=== PATIENT | female | born 1950 | race Caucasian/White ===

== ENCOUNTER 2022-01-29 06:33 | Day surgery (SDC) | payer MEDICARE, OTHER, SELFPAY ==
--- NOTE | 2022-01-29 04:48 | W.ANESPRE ---
General Info Date of Service Date Performed: 01/29/22 Height: 5 ft 9 in Weight: 63.503 kg Body Mass Index (BMI): 20.7 Surgical Procedure: Operation Date: 01/29/22 07:40 Proposed Procedure Side Surgeon p Cataract Extraction with IOL Implant Left Art Novak MD Meds Allergies and Home Medications Allergies Allergy/AdvReac Type Severity Reaction Status Date / Time cat dander Allergy Mild Other (See Unverified 01/29/22 06:54 Comment) dog dander Allergy Mild Other (See Unverified 01/29/22 06:54 Comment) dust Allergy Mild Other (See Uncoded 01/29/22 06:54 Comment) Home Medication Medication Instructions Recorded calcium carbonate 600 mg-vitamin 1 tab PO DAILY 01/26/22 D3 5 mcg (200 unit) tablet cholecalciferol (vitamin D3) 25 1,000 unit PO DAILY 01/26/22 mcg (1,000 unit) chewable tablet (Vitamin D3) multivitamin 1 tab PO DAILY 01/26/22 Current Visit Medications: Current Medications Generic Name Dose Route Start Last Admin Trade Name Freq PRN Reason Stop Dose Admin Acetaminophen 1,000 mg 01/29/22 06:00 Acetaminophen 500 Mg Tab PO Q4H PRN PRN Miscellaneous Medication 0 ml 01/29/22 06:00 Prednisolone 1%, Moxifloxacin 0.5%, Nepafenac 0.1% 5ml Btl OS DIRECTED [facility] Miscellaneous Medication 0 ml 01/29/22 06:00 Tropicam./Phenyleph. 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) Hearing loss History of broken leg Hypercholesteremia Osteoporosis Vitamin D deficiency Surgical History Surgical History (Updated 01/26/22 @ 11:45 by Anoop Corea) Hx of breast biopsy Hx of section Hx of colonoscopy Hx of tubal ligation Tobacco Smoking/Tobacco Use Status: Former Tobacco Use Alcohol Alcohol Intake: current Alcohol intake frequency: a few times a month Substance Use Substance use: Never Substance use type: does not use Vital Signs and Lab Results Vital Signs Most Recent Vital Signs in EMR: Temp Pulse Resp BP Pulse Ox 36.8 C 75 16 144/86 H 100 01/29/22 06:55 01/29/22 06:55 01/29/22 06:55 01/29/22 06:55 01/29/22 06:55 Lab Results Blood Type / Crossmatch: No Data to Display Complete Blood Count: No Data to Display Complete Metabolic Panel: No Data to Display Liver Function Panel: No Data to Display Coagulation Panel: No Data to Display Cardiac Panel: No Data to Display Arterial Blood Gas: No Data to Display Venous Blood Gas: No Data to Display Pancreas Panel: No Data to Display Thyroid Panel: No Data to Display Infectious Disease: No Data to Display Blood Cultures: No Data to Display Toxicology Panel: No Data to Display Anesthesia Assessment and Plan Anesthesia History Personal History: No History of Anesthesia Complications Family History: No Family History of Anesthesia Complications Exercise Tolerance Exercise Tolerance: Metabolic Equivalents>4 Cardiac & Pulmonary Exam Cardiac Exam: Normal S1/S2 Heart Sounds Pulmonary Exam: Clear Bilateral Breath Sounds Implantable Cardiac Device Does patient have a Pacemaker or an ICD?: No Airway Exam Known Difficult Airway: No Mallampati Class: 2 Mouth Opening: Normal (> 3cm) Thyromental Distance: Less than 3 cm Neck Range of Motion: Full ROM Neck Circumference: Normal Teeth Condition: Normal Dentition ASA Classification ASA Score: ASA 2 Emergency Case?: No NPO Status NPO Status: NPO Clears >2 hours, Solids >8 hours Anesthesia Plan Resuscitation Status: Full Code Anesthesia Technique: MAC Anesthesia Airway Planned: Natural Airway Monitors Used: Standard Monitors Preoperative Comments:: 71 yo female for cataract removal. Sig PMHx: bells palsy, facial spasm, former smoker (1969), occ EtOH. Would like MKO, will do 1/2 tab, discussed that an IV can be placed if she needs more.
[2022-01-29 06:52] VITALS: BMI 20.7
[2022-01-29 06:55] VITALS: BP 144/86; PULSE 75; RESP 16; TEMP 36.8; O2SAT 100
[2022-01-29] MEDS: Tropicam./Phenyleph. (1/2.5%) 5 ML BTL OS ×3 (06:58→07:09)
[2022-01-29] MEDS: Lidocaine 2% Jelly 6 ML SYR (07:34)
[2022-01-29] MEDS: Tetracaine 0.5% 4 ML BTL OS (07:34)
[2022-01-29] MEDS: Lidocaine 1% Multi-Dose 10 ML VIAL (07:41)
[2022-01-29] MEDS: Balanced Salt Soln.-PLUS 500 ML BAG (07:45)
[2022-01-29] MEDS: Duovisc Viscoelastic System EACH 1 EACH (07:46)
[2022-01-29] MEDS: Povidone-Iodine Ophth 30 ML BTL (07:46)
[2022-01-29 08:02] VITALS: BP 134/84; PULSE 51; RESP 16; TEMP 36.6; O2SAT 97
--- NOTE | 2022-01-29 08:07 | ROE_ITS ---
Date of service: 01/29/22 Time of Service: 08:07 Operative Note Operative Note DATE OF PROCEDURE: 01/29/22 PRE-OP DIAGNOSIS: Nuclear/posterior subcapsular cataract, left eye With the rule astigmatism, left eye POST-OP DIAGNOSIS: same PROCEDURE: Cataract extraction using phacoemulsification with toric intraocular lens implant, left eye SURGEON: Art Novak ANESTHESIA TYPE: Local By Surgeon and MAC Refer to Anesthesia Record PATHOLOGY: none sent COMPLICATIONS: None Patient was transported to: same day Patient's condition: stable Implants: Sanjiv and Sanjiv Vision Tecnis Toric Intraocular Lens [id number] +16.5 Indications: Progressive decreased vision due to cataract, left eye, with corneal astigmatism Procedure Description: CATARACT SURGERY OPERATIVE REPORT PREOPERATIVE DIAGNOSIS: Nuclear/posterior subcapsular cataract, left eye With the rule astigmatism, left eye POSTOPERATIVE DIAGNOSIS: Same OPERATION: Cataract extraction using phacoemulsification with posterior chamber toric intraocular lens implant, left eye. IOL: IOL Modern Dancer/Model: Painting With A Twist&Painting With A Twist Vision Tecnis EyhanceToric [id number] IOL Power: + 16.5 diopters sphere, 3.75 cylinder IOL Serial Number: [id number] Optic Diameter: 6.0mm Haptic/Overall Diameter: 13.00mm PHACO INFO: Antony Centurion Vision System with OZil and Active Fluidics Cumulative Dispersed Energy (CDE): 15.42 seconds SURGEON: Art Novak MD, JOSH ANESTHESIA: Monitored Anesthesia Care (MAC), with local sub-tenon's anesthetic infiltration COMPLICATIONS: None SPECIMENS: None INDICATIONS FOR PROCEDURE: The patient is a 71-year-old lady with history of myopia and astigmatism in the left eye who has developed a significant nuclear/posterior subcapsular cataract. She is significantly symptomatic that she desires cataract surgery and attempt to improve and maximize her vision. The option of cataract surgery was offered to the patient and she wished to proceed with surgery using a toric intraocular lens implant to minimize her postoperative a stigmatism. PROCEDURE: The correct surgical eye was identified and marked as the left eye and the pupil was dilated in the preoperative area using mydriatics and cycloplegics. The dilated pupil size was 7.0 mm. With the patient in the seated position, topical anesthetic was applied and a surgical marker was used to ivelisse the limbus at 6:00. A Surgilum Robomarker was then used to ivelisse the 0/180 degree reference ax is. Oral sedation was administered in the form of one half of an Imprimis MKO Melt (midazolam 3mg/ketamine 25mg/ondansetron 2mg). The patient was brought to the operating room where cardiopulmonary monitoring was instituted and surgical time-out was performed, confirming the correct operative eye and IOL power. Topical anesthesia was administered and ophthalmic povidone-iodine 5% was instilled into the conjunctival fornices. Lidocaine gel was applied to the cornea and the german-ocular area was prepped with Betadine 10% solution and draped in the usual sterile fashion for intraocular surgery, including an aperture drape. A Tegaderm transparent film dressing was cut in half and used to cover the lashes and lid margins. Care was taken to sequester the lashes and lid margins under the Tegaderm dressing. A lid speculum was placed between the lids of the operative eye and the Antony LuxOR Revaliat operating microscope was maneuvered into position. Clive scissors were then used to make a conjunctival buttonhole approximately 6mm posterior to the limbus in the inferonasal quadrant. Blunt dissection was carried out to expose bare sclera, and a blunt-tipped sub-tenon?s anesthesia cannula was introduced and passed posteriorly along the globe where non- preserved plain lidocaine was injected into posterior sub-Tenon?s space. A corneal ring gauge and axis marker were then used to ivelisse the 010 degree position for the main phaco incision, and the 100/280 degree axis for alignment of the toric IOL. A sideport knife was used to make a paracentesis port superiorly at the 100 degree axis.. Intraocular phenylephrine/lidocaine was injected into the anterior chamber. The anterior chamber was then filled with viscoelastic. A keratome knife was used to create a half-thickness groove at the limbus and then to construct a three-plane near-clear corneal tunnel extending 2.0mm into clear cornea at the 010 degree axis. . A flap was raised on the anterior capsule and capsulorhexis forceps were used to complete a continuous curvilinear capsulorhexis of 5.0 mm. Balanced salt solution was then used to perform cortical cleaving hydrodissection and nuclear hydrodelineation until the lens could be freely rotated within the capsular bag. The lens nucleus was then disassembled and removed within the capsular bag and iris plane using phacoemulsification. Residual cortical material was removed using the 45-degree angled silicone I/A tip with 0.3mm port. The posterior capsule was carefully polished to remove as much residual lens epithelial cells as safely possible. The capsular bag was then inflated and the anterior chamber deepened with viscoelastic. The lens implant described above was inserted into the capsular bag using the FRANTZ Chitina Injector. A Kuglen hook was used to dial the IOL into position, about 10 degrees counterclockwise of its final alignment. Residual viscoelastic was then removed first from posterior to the IOL, then from the anterior chamber using the I/A handpiece. The I/A handpiece was then used to dial the IOL to the target axis. The lens implant was noted to center nicely within the capsular bag, with the toric IOL ambriz aligned at the 100/280 degree axis. The incisions were stromally hydrated, and the anterior chamber was reformed using BSS. Then 0.5cc of moxifloxacin 1.0mg/ml were injected into the capsular bag and anterior chamber. The incisions were checked with a Weck spear and found to be secure. Several drops of ophthalmic povidone-iodine 5% were then applied to the eye followed by two drops of Imprimis combination p rednisolone/moxifloxacin/nepafenac solution. The drapes were removed and a clear plastic protective eye shield was placed over the eye. The patient was then returned to Same Day Surgery in stable condition.
--- NOTE | 2022-01-29 08:07 | W.PM.DSUDISC ---
Discharge Plan Disposition Patient Disposition: HOME Condition: Good Discharge Details Attending Provider: Art Novak Primary Care Provider: Dana Vázquez Home Meds and New Rx's Prescriptions: No Action multivitamin [One A Day] Tablet 1 tab PO DAILY calcium carbonate-vitamin D3 [Calcium + D] 600 mg-5 mcg (200 unit) Tablet 1 tab PO DAILY cholecalciferol (vitamin D3) [Vitamin D3] 25 mcg (1,000 unit) Tablet,Chewable 1,000 unit PO DAILY Discharge Instructions Stand Alone Forms: Post-op Topical Cataract, Anup Cohn ([facility]) Discharge Orders Discharge Orders: Discharge Order (Routine); Ordered 01/29/22 Ordered By: Art Novak DS: Diagnosis Discharge Diagnosis (1) Posterior subcapsular age-related cataract of left eye: Status: Resolved (2) Nuclear sclerotic cataract of left eye: Status: Resolved
--- NOTE | 2022-01-29 08:30 | W.ANESPOSTOP ---
Postoperative Evaluation Date, Time and Location Date Performed: 01/29/22 Time Performed: 08:15 Patient Location: Day Surgery Unit Vital Signs Most Recent Imported Vital Signs: Most Recent Vital Signs Temp Pulse Resp BP Pulse Ox 36.6 C 51 L 16 134/84 97 01/29/22 08:02 01/29/22 08:02 01/29/22 08:02 01/29/22 08:02 01/29/22 08:02 Pain Score Most Recent Pain Score: Most Recent Pain Score Pain Level 0 01/29/22 08:02 Assessment Mental Status: Awake (Alert & Oriented to Patient Baseline) Airway and Respiratory Function: Patent airway with normal (patient baseline) respiratory exam Cardiovascular Function: Hemodynamically Stable Hydration Status: Adequately Hydrated Nausea & Vomiting: No Nausea or Vomiting Pain: Pt. Denies Any Pain Peripheral Nerve Block: Patient did not receive a nerve block
[2022-01-29 08:32] VITALS: BP 145/91; PULSE 56; RESP 17; TEMP 36.8; O2SAT 96
== END 2022-01-29 08:35 | disposition home or self-care (01) ==
PROVIDERS: PCP Family Medicine; Visit Provider Ophthalmology
PROC: (CPT 66984; principal; 2022-01-29 07:30)
DX: H25.042 Posterior subcapsular polar age-related cataract, left eye (principal); H52.202 Unspecified astigmatism, left eye
CPT/HCPCS: 66984; V2632

== ENCOUNTER 2022-02-12 08:48 | Day surgery (SDC) | payer MEDICARE, OTHER, SELFPAY ==
[2022-02-12] MEDS: Tropicam./Phenyleph. (1/2.5%) 5 ML BTL OD ×3 (09:30→09:42)
[2022-02-12 09:36] VITALS: BP 132/80; PULSE 60; RESP 16; TEMP 36.4; O2SAT 98
--- NOTE | 2022-02-12 09:58 | ANES.PREOP_ITS ---
General Info Date of Service Date Performed: 02/12/22 Height: 5 ft 9 in Weight: 63.6 kg Body Mass Index (BMI): 20.7 Surgical Procedure: Operation Date: 02/12/22 10:40 Proposed Procedure Side Surgeon p Cataract Extraction with IOL Implant Right Art Novak MD Meds Allergies and Home Medications Allergies Allergy/AdvReac Type Severity Reaction Status Date / Time cat dander Allergy Mild Other (See Unverified 02/12/22 09:34 Comment) dog dander Allergy Mild Other (See Unverified 02/12/22 09:34 Comment) dust Allergy Mild Other (See Uncoded 02/12/22 09:34 Comment) Home Medication Medication Instructions Recorded calcium carbonate 600 mg-vitamin 1 tab PO DAILY 01/26/22 D3 5 mcg (200 unit) tablet cholecalciferol (vitamin D3) 25 1,000 unit PO DAILY 01/26/22 mcg (1,000 unit) chewable tablet (Vitamin D3) multivitamin 1 tab PO DAILY 01/26/22 Current Visit Medications: Current Medications Generic Name Dose Route Start Last Admin Trade Name Freq PRN Reason Stop Dose Admin Acetaminophen 1,000 mg 02/12/22 06:00 Acetaminophen 500 Mg Tab PO Q4H PRN PRN Miscellaneous Medication 0 ml 02/12/22 06:00 Prednisolone 1%, Moxifloxacin 0.5%, Nepafenac 0.1% 5ml Btl OD DIRECTED [facility] Miscellaneous Medication 0 ml 02/12/22 06:00 02/12/22 09:42 Tropicam./Phenyleph. 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) Hearing loss History of broken leg Hypercholesteremia Osteoporosis Vitamin D deficiency Surgical History Surgical History Hx of breast biopsy Hx of section Hx of colonoscopy Hx of tubal ligation Tobacco Smoking/Tobacco Use Status: Former Tobacco Use Alcohol Alcohol Intake: current Alcohol intake frequency: a few times a month Substance Use Substance use: Never Substance use type: does not use Vital Signs and Lab Results Vital Signs Most Recent Vital Signs in EMR: Most Recent Vital Signs Temp Pulse Resp BP Pulse Ox 36.4 C L 60 16 132/80 98 02/12/22 09:36 02/12/22 09:36 02/12/22 09:36 02/12/22 09:36 02/12/22 09:36 Lab Results Blood Type / Crossmatch: No Data to Display Complete Blood Count: No Data to Display Complete Metabolic Panel: No Data to Display Liver Function Panel: No Data to Display Coagulation Panel: No Data to Display Cardiac Panel: No Data to Display Arterial Blood Gas: No Data to Display Venous Blood Gas: No Data to Display Pancreas Panel: No Data to Display Thyroid Panel: No Data to Display Infectious Disease: No Data to Display Blood Cultures: No Data to Display Toxicology Panel: No Data to Display Anesthesia Assessment and Plan Anesthesia History Personal History: No History of Anesthesia Complications Family History: No Family History of Anesthesia Complications Exercise Tolerance Exercise Tolerance: Metabolic Equivalents>4 Pertinent Negatives Pertinent Negatives: No Symptoms of GERD, No Major Cardiovascular Symptoms or Complaints, No Major Pulmonary Symptoms or Complaints (Quit at 18 yo) and No History of CVA/TIA Cardiac & Pulmonary Exam Cardiac Exam: Normal S1/S2 Heart Sounds Pulmonary Exam: Clear Bilateral Breath Sounds Implantable Cardiac Device Does patient have a Pacemaker or an ICD?: No Airway Exam Known Difficult Airway: No Mallampati Class: 1 Mouth Opening: Normal (> 3cm) Thyromental Distance: Less than 3 cm Neck Range of Motion: Full ROM Neck Circumference: Normal Teeth Condition: Normal Dentition ASA Classification ASA Score: ASA 2 Emergency Case?: No NPO Status NPO Status: NPO Clears >2 hours, Solids >8 hours Anesthesia Plan Resuscitation Status: Full Code Anesthesia Technique: General Anesthesia Airway Planned: Natural Airway Monitors Used: Standard Monitors
[2022-02-12 10:00] VITALS: BMI 20.7
[2022-02-12] MEDS: Tetracaine 0.5% 4 ML BTL OD (10:11)
[2022-02-12] MEDS: Povidone-Iodine Ophth 30 ML BTL (10:11)
[2022-02-12] MEDS: Lidocaine 2% Jelly 6 ML SYR (10:12)
[2022-02-12] MEDS: Balanced Salt Soln.-PLUS 500 ML BAG (10:17)
[2022-02-12] MEDS: Duovisc Viscoelastic System EACH 1 EACH ×2 (10:17→10:48)
[2022-02-12 11:00] VITALS: BP 136/82; PULSE 55; RESP 18; TEMP 36; O2SAT 98
--- NOTE | 2022-02-12 11:00 | W.ANESPOSTOP ---
Postoperative Evaluation Date, Time and Location Date Performed: 02/12/22 Time Performed: 10:59 Patient Location: Day Surgery Unit Vital Signs Most Recent Imported Vital Signs: Most Recent Vital Signs Temp Pulse Resp BP Pulse Ox 36.4 C L 60 16 132/80 98 02/12/22 09:36 02/12/22 09:36 02/12/22 09:36 02/12/22 09:36 02/12/22 09:36 Most Recent Manually Entered Vital Signs: Adult Blood Pressure: 136/82 Heart Rate: 55 Respirations: 18 Oxygen Saturation (%): 98 Temperature (C): 36.3 C Pain Score (0-10 Scale): 0 Pain Score Most Recent Pain Score: Most Recent Pain Score Pain Level 0 02/12/22 09:36 Assessment Mental Status: Awake (Alert & Oriented to Patient Baseline) Airway and Respiratory Function: Patent airway with normal (patient baseline) respiratory exam Cardiovascular Function: Hemodynamically Stable Hydration Status: Adequately Hydrated Nausea & Vomiting: No Nausea or Vomiting Pain: Pt. Denies Any Pain Peripheral Nerve Block: Patient did not receive a nerve block
--- NOTE | 2022-02-12 11:00 | W.PM.DSUDISC ---
Discharge Plan Disposition Patient Disposition: HOME Condition: Good Discharge Details Attending Provider: Art Novak Primary Care Provider: Dana Vázquez Home Meds and New Rx's Prescriptions: No Action multivitamin [One A Day] Tablet 1 tab PO DAILY calcium carbonate-vitamin D3 [Calcium + D] 600 mg-5 mcg (200 unit) Tablet 1 tab PO DAILY cholecalciferol (vitamin D3) [Vitamin D3] 25 mcg (1,000 unit) Tablet,Chewable 1,000 unit PO DAILY Discharge Instructions Stand Alone Forms: Post-op Topical Cataract, Anup Cohn ([facility]) Discharge Orders Discharge Orders: Discharge Order (Routine); Ordered 02/12/22 Ordered By: Art Novak DS: Diagnosis Discharge Diagnosis (1) Posterior subcapsular age-related cataract, right eye: Status: Resolved (2) Nuclear sclerotic cataract of right eye: Status: Resolved
[2022-02-12 11:01] VITALS: BP 136/82; PULSE 55; RESP 18; TEMPC 36.3; O2SAT 98
--- NOTE | 2022-02-12 11:01 | ROE_ITS ---
Date of service: 02/12/22 Time of Service: 11:01 Operative Note Operative Note DATE OF PROCEDURE: 02/12/22 PRE-OP DIAGNOSIS: Nuclear/cortical cataract, right eye POST-OP DIAGNOSIS: same PROCEDURE: Cataract extraction using phacoemulsification with intraocular lens implant, right eye SURGEON: Art Novak ANESTHESIA TYPE: Local By Surgeon and MAC Refer to Anesthesia Record ESTIMATED BLOOD LOSS: 0 PATHOLOGY: none sent COMPLICATIONS: Other (Posterior capsular tear without vitreous loss) Patient was transported to: same day Patient's condition: stable Implants: Sanjiv & Sanjiv/FRANTZ AR40e Indications: Progressive visual loss due to cataract, right eye Procedure Description: CATARACT SURGERY OPERATIVE REPORT PREOPERATIVE DIAGNOSIS: 1. Nuclear/cortical cataract, right eye POSTOPERATIVE DIAGNOSIS: Same OPERATION: 1. Cataract extraction using phacoemulsification with posterior chamber intraocular lens implant, right eye. IOL: IOL Game Agent/Model: Sanjiv & Sanjiv / FRANTZ AR40e IOL Power: + 17.0 diopters IOL Serial Number: [id number] Optic Diameter: 6.0mm Haptic/Overall Diameter: 13.0mm PHACO INFO: Antony Cross Currenturion Vision System with OZil and Active Fluidics Cumulative Dispersed Energy (CDE): 9.49 seconds SURGEON: Art Novak MD, JOSH ANESTHESIA: Monitored Anesthesia Care (MAC), with local sub-tenon's anesthetic infiltration COMPLICATIONS: Posterior capsular tear without vitreous loss SPECIMENS: None INDICATIONS FOR PROCEDURE: The patient is a 71-year-old lady with history of myopia and astigmatism, left eye worse than right. She has developed significant bilateral nuclear/cortical cataract. She has already undergone cataract surgery in the left eye with astigmatism correcting intraocular lens implant. She now presents for cataract surgery in the right eye. PROCEDURE: The correct surgical eye was identified and marked as the right eye and the pupil was dilated in the preoperative area using mydriatics and cycloplegics. The dilated pupil size was 7.0 mm. Oral sedation was administered in the form of one half of an Imprimis MKO Melt (midazolam 3mg/ketamine 25mg/ondansetron 2mg).. The patient was brought to the operating room where cardiopulmonary monitoring was instituted and surgical time-out was performed, confirming the correct operative eye and IOL power. Topical anesthesia was administered and ophthalmic povidone-iodine 5% was instilled into the conjunctival fornices. Lidocaine gel was applied to the cornea and the german-ocular area was prepped with Betadine 10% solution and draped in the usual sterile fashion for intraocular surgery, including an aperture drape. A Tegaderm transparent film dressing was cut in half and used to cover the lashes and lid margins. Care was taken to sequester the lashes and lid margins under the Tegaderm dressing. A lid speculum was placed between the lids of the operative eye and the Antony LuxOR Revalia operating microscope was maneuvered into position. Clive scissors were then used to make a conjunctival buttonhole approximately 6mm posterior to the limbus in the inferonasal quadrant. Blunt dissection was carried out to expose bare sclera, and a blunt-tipped sub-tenon?s anesthesia cannula was introduced and passed posteriorly along the globe where non- preserved plain lidocaine was injected into posterior sub-Tenon?s space. A sideport knife was used to make a paracentesis port inferotemporally. Intraocu lar phenylephrine/lidocaine was injected into the anterior chamber. The anterior chamber was filled with viscoelastic. A keratome knife was used to construct a 2-plane near-clear corneal tunnel extending 2.0mm into clear cornea superiortemporally. A flap was raised on the anterior capsule and capsulorhexis forceps were used to complete a continuous curvilinear capsulorhexis of 5.5 mm. Balanced salt solution was then used to perform cortical cleaving hydrodissection and nuclear hydrodelineation until the lens could be freely rotated within the capsular bag. The lens nucleus was then disassembled and removed within the capsular bag and iris plane using phacoemulsification. During cortical cleanup, a horizontal split was noted across the posterior capsule, from approximately the 8 o'clock position to the 2 o'clock position. Keeping the foot pedal in position 1, Viscoat was injected at the level of the posterior capsular split to tamponade vitreous, which had not prolapsed. Care was taken to remove all residual cortical material. No fragments were noted to fall posteriorly. The anterior chamber was filled with Provisc prior to removing the irrigation/aspiration handpiece. The sulcus was then expanded using Provisc, and the main phaco wound was enlarged slightly using the keratome knife. The Sanjiv & NOBLE PEAK VISIONald injector was then used to inject a Sanjiv & Sanjiv AR40e three-piece lens into the anterior chamber. The haptics were then guided into the sulcus with a Kuglen hook.. An attempt was made to capture the optic within the anterior capsulorrhexis, but was unsuccessful. Miostat was then injected in small aliquots at the pupillary margin and the pupil was noted to come down around. Residual viscoelastic was then very slowly removed from the anterior chamber using the I/A handpiece. The lens implant was noted to center nicely within sulcus. Prior to removing the irrigation/aspiration handpiece, the BSS cannula was used to maintain the anterior chamber. The wounds were stromally hydrated. Pupil had constricted to 3 mm and was round with no notching or peaking. Then 0.5cc of moxifloxacin 1.0mg/ml were injected into the capsular bag and anterior chamber. The incisions were checked with a Weck spear and found to be secure. Several drops of ophthalmic povidone-iodine 5% were then applied to the eye followed by two drops of Imprimis combination prednisolone/moxifloxacin/nepafenac solution. The drapes were removed and a clear plastic protective eye shield was placed over the eye. The patient was then returned to Same Day Surgery in stable condition.
[2022-02-12 11:19] VITALS: BP 151/82; PULSE 55; RESP 18; TEMP 36; O2SAT 97
== END 2022-02-12 11:30 | disposition home or self-care (01) ==
LOC: SUR 08:48
PROVIDERS: PCP Family Medicine; Visit Provider Ophthalmology
PROC: (CPT 66984; principal; 2022-02-12 10:30)
DX: H25.041 Posterior subcapsular polar age-related cataract, right eye (principal)
CPT/HCPCS: 66984; V2632